=== PATIENT | female | born 2000 | race Caucasian/White ===

== ENCOUNTER 2021-07-13 10:08 | Outpatient (REF) | payer MEDICAID, OTHER, SELFPAY ==
[2021-07-13 10:41] LABS: Binax Internal Control QC Valid; Binax Now Covid-19 Ag Negative (Negative)
== END 2021-07-13 10:09 | disposition home or self-care (01) ==
LOC: HO.LAB 10:08
PROVIDERS: Visit Provider Internal Medicine
DX: Z20.822 Contact with and (suspected) exposure to COVID-19 (principal)
CPT/HCPCS: C9803

== ENCOUNTER 2021-07-15 13:52 | Emergency (ER) | payer MEDICAID, OTHER, SELFPAY ==
[2021-07-15 15:34] VITALS: BP 108/66; PULSE 110; RESP 18; TEMP 37.2; O2SAT 97; BMI 24.7
[2021-07-15 16:08] LABS: COVID-19 Test Positive (Negative)
--- NOTE | 2021-07-15 16:21 | ED_ITS ---
HPI - URI/Sore Throat General Chief Complaint: Upper Respiratory Symptoms <Cordelia Grant NP - Last Filed: 07/15/21 16:23> Stated Complaint: fever/body aches <Cordelia Grant NP - Last Filed: 07/15/21 16:23> Time Seen by Provider: 07/15/21 15:38 <Cordelia Grant NP - Last Filed: 07/15/21 16:23> Source: patient <Cordelia Grant NP - Last Filed: 07/15/21 16:23> Mode of arrival: ambulatory <Cordelia Grant NP - Last Filed: 07/15/21 16:23> Limitations: no limitations <Cordelia Grant NP - Last Filed: 07/15/21 16:23> History of Present Illness HPI Narrative: 21-year-old female here with reports of subjective fever, headache, sore throat since Friday evening. Patient received Moderna vaccine x2. No cough, difficulty breathing, chest pain, leg swelling or pain, vomiting, diarrhea, abdominal pain. <Cordelia Grant NP - Last Filed: 07/15/21 16:23> Related Data Allergies/Adverse Reactions: Allergies Allergy/AdvReac Type Severity Reaction Status Date / Time No Known Allergies Allergy Verified 07/15/21 15:38 [No Known Allergies*] <Cordelia Grant NP - Last Filed: 07/15/21 16:23> Review of Systems Review of Systems: Yes all other systems are reviewed and are negative <Cordelia Grant NP - Last Filed: 07/15/21 16:23> Constitutional: Constitutional: Reports no additional constitutional complaints, Denies body ache(s), Denies chills, Reports fever(s), Reports headache(s) and Denies weakness <Cordelia Grant NP - Last Filed: 07/15/21 16:23> Eyes: Eyes: Reports no additional eye complaints and Denies change in vision <KELSEY Hayes Last Filed: 07/15/21 16:23> ENT: Reports system reviewed and no additional complaints, except as documented, Denies dizziness, Reports headache(s), Denies nasal congestion, Denies nasal discharge, Denies neck pain and Reports sore throat <Cordelia Grant NP - Last Filed: 07/15/21 16:23> Cardiovascular: Cardiovascular: Reports no additional cardiovascular com plaints, Denies chest pain, Denies leg edema and Denies dyspnea <Cordelia Grant NP - Last Filed: 07/15/21 16:23> Respiratory: Respiratory: Reports no additional respiratory complaints, Denies cough and Denies dyspnea <Cordelia Grant NP - Last Filed: 07/15/21 16:23> Gastrointestinal: Gastrointestinal: Reports no additional gastrointestinal complaints, Denies abdominal pain, Denies diarrhea, Denies nausea and Denies vomiting <Cordelia Grant NP - Last Filed: 07/15/21 16:23> Genitourinary: Genitourinary: Reports no additional female genitourinary co mplaints and Denies urinary incontinence <Cordelia Grant NP - Last Filed: 07/15/21 16:23> Musculoskeletal: Musculoskeletal: Reports no additional musculoskeletal complaints, Denies back pain, Denies arthralgias, Denies joint swelling, Denies neck pain, Denies numbness and Denies tingling <Cordelia Grant NP - Last Filed: 07/15/21 16:23> Integumentary/Breasts: Skin/Breast: Reports system reviewed and no additional complaints, except as docu and Denies rash <Cordelia Grant NP - Last Filed: 07/15/21 16:23> Neurologic: Reports system reviewed and no additional complaints, except as documented, Denies Abnormal speech present, Denies dizziness, Reports headache(s), Denies numbness, Denies tingling and Denies weakness <Cordelia Grant NP - Last Filed: 07/15/21 16:23> [facility]LY [facility] Past Medical History Attestation statement: The following information was validated with the patient. <Cordelia Grant NP - Last Filed: 07/15/21 16:23> Source: old records reviewed and nursing notes reviewed <Cordelia Grant NP - Last Filed: 07/15/21 16:23> Medical History: Medical History No known health problems <Cordelia Grant NP - Last Filed: 07/15/21 16:23> Social History Social History: Social History Advance Directives: No Advance Directives Information Provided: Yes Patient : No <Cordelia Grant NP - Last Filed: 07/15/21 16:23> Physical Exam Vital Signs: Vital Signs: Last Vital Signs Temp 99.0 F 07/15/21 15:34 Pulse 110 H 07/15/21 15:34 Resp 18 07/15/21 15:34 BP 108/66 07/15/21 15:34 Pulse Ox 97 07/15/21 15:34 BMI result Body Mass Index 24.7 <Cordelia Grant NP - Last Filed: 07/15/21 16:23> Vital Signs: Last Vital Signs Temp 99.0 F 07/15/21 15:34 Pulse 110 H 07/15/21 15:34 Resp 18 07/15/21 15:34 BP 108/66 07/15/21 15:34 Pulse Ox 97 07/15/21 15:34 BMI result Body Mass Index 24.7 <Chino Gutierrez MD - Last Filed: 07/15/21 16:33> Const: General: cooperative, healthy appearing, comfortable and no acute distress <Cordelia Grant NP - Last Filed: 07/15/21 16:23> Orientation/consciousness: patient oriented x3 <Cordelia Grant NP - Last Filed: 07/15/21 16:23> Limitations: no limitations <Cordelia Grant NP - Last Filed: 07/15/21 16:23> HENMT: Head: Yes normal to inspection <Cordelia Grant NP - Last Filed: 07/15/21 16:23> Ears: hearing grossly normal bilaterally and TM's normal bilaterally <Cordelia Grant NP - Last Filed: 07/15/21 16:23> General nose exam: Normal external nose present <Cordelia Grant NP - Last Filed: 07/15/21 16:23> Face and sinus: Yes normal facial exam <Cordelia Grant NP - Last Filed: 07/15/21 16:23> Mouth: Normal oral and palatal mucosa present <Cordelia Grant NP - Last Filed: 07/15/21 16:23> Throat: Yes posterior oropharynx normal, Yes tonsils normal and Yes uvula midline <Cordelia Grant NP - Last Filed: 07/15/21 16:23> Eyes: General: appearance normal, both eyes and all related structures <Cordelia Grant NP - Last Filed: 07/15/21 16:23> Pupils: Equal, round and reactive pupils present <Cordelia Grant NP - Last Filed: 07/15/21 16:23> Neck: Neck: Yes normal visual inspection, Yes full ROM, Yes no lymphadenopathy and Yes no meningeal signs <Cordelia Grant NP - Last Filed: 07/15/21 16:23> Chest: Chest palpation & inspection: normal inspection of the chest <Cordelia Grant NP - Last Filed: 07/15/21 16:23> Resp: Effort & Inspection: normal respiratory effort <Cordelia Grant NP - Last Filed: 07/15/21 16:23> Auscultation: clear to auscultation bilaterally <Cordelia Grant NP - Last Filed: 07/15/21 16:23> Cardio: Rate: regular rate <Cordelia Grant NP - Last Filed: 07/15/21 16:23> Rhythm: regular rhythm <Cordelia Grant NP - Last Filed: 07/15/21 16:23> Peripheral pulses: Peripheral pulses 2+ throughout <Cordelia Grant NP - Last Filed: 07/15/21 16:23> GI: Inspection: Yes normal to inspection <Cordelia Grant NP - Last F iled: 07/15/21 16:23> Palpation (GI): Soft to palpation and nontender <Cordelia Grant NP - Last Filed: 07/15/21 16:23> Auscultation: normal bowel sounds <Cordelia Grant NP - Last Filed: 07/15/21 16:23> Back/Spine/Pelvis: Thoracic/Lumbar Spine: thoracic and lumbar spine normal to inspection <Cordelia Grant NP - Last Filed: 07/15/21 16:23> Skin: General skin exam: no rashes or lesions noted <Cordelia Grant NP - Last Filed: 07/15/21 16:23> Neuro: General: patient oriented x3, no meningeal signs, no focal motor deficits and normal sensation to monofilament <Cordelia Grant NP - Last Filed: 07/15/21 16:23> Cranial nerves: Yes Equal, round and reactive pupils present <Cordelia Grant NP - Last Filed: 07/15/21 16:23> Cognition (Neuro): normal cognition <Cordelia Grant NP - Last Filed: 07/15/21 16:23> Speech: No Abnormal speech present <Cordelia Grant NP - Last Filed: 07/15 16:23> Gait exam (Neuro): Normal gait present <Cordelia Grant NP - Last Filed: 07/15/21 16:23> Motor exam (neuro): 5/5 motor strength present throughout <Cordelia Grant NP - Last Filed: 07/15/21 16:23> Extrem: General: Yes normal to inspection <Cordelia Grant NP - Last Filed: 07/15/21 16:23> Course Course Course Narrative: [age] year old female here with reports of headache, subjective fevers and sore throat since Friday. Patient to call a test for COVID on Friday but results are still pending. On arrival patient is well appearing. Afebrile. Exam is benign. Will send rapid COVID test. 1615-rapid COVID test positive. No hypoxia or tachypnea. Lungs are clear. Re viewed quarantine for home. Reviewed worrisome signs symptoms when to return to the emergency department. Comfortable discharge home. <Cordelia Grant NP - Last Filed: 07/15/21 16:23> MDM - URI/Sore Throat Medical Records Attestation: I reviewed the patient's medical records. <Cordelia Grant NP - Last Filed: 07/15/21 16:23> Lab Data Attestation: I reviewed the patient's lab results. <Cordelia Grant NP - Last Filed: 07/15/21 16:23> Labs: Lab Results 07/15/21 Range/Units 15:56 COVID-19 ([facility]) Positive A (Negative) COVID-19 Clin Com See Note <Cordelia Grant NP - Last Filed: 07/15/21 16:23> Lab Results 07/15/21 Range/Units 15:56 COVID-19 ([facility]) Positive A (Negative) COVID-19 Clin Com See Note <Chino Gutierrez MD - Last Filed: 07/15/21 16:33> Discharge Plan Discharge Clinical Impression: COVID-19 <Cordelia Grant NP - Last Filed: 07/15/21 16:23> Patient Disposition: Home, Self-Care <Cordelia Grant NP - Last Filed: 07/15/21 16:23> Instructions: COVID-19 (Coronavirus Disease 2019) (ED) <Cordelia Grant NP - Last Filed: 07/15/21 16:23> Additional Instructions: Covid test is positive. You must quarantine for 5 days from onset of symptoms. After this you may return to work if you are fever free without tylenol and symptoms are improving. If you continue to have symptoms or fever you must continue to quarantine. Motrin or tylenol for pain or fever as needed Increase fluids, rest Return for shortness of breath, chest pain to ER <Cordelia Grant NP - Last Filed: 07/15/21 16:23> Referrals: Physician,Unknown J [Primary Care Provider] - 2 days <Cordelia Grant NP - Last Filed: 07/15/21 16:23> Stand Alone Forms: Work/School Release <Cordelia Grant NP - Last Filed: 07/15/21 16:23> Interventions: ED Discharge Assessment Last Done: 07/15/21 16:28 <Cordelia Grant NP - Last Filed: 07/15/21 16:23> Discharge Date/Time: 07/15/21 16:29 <Cordelia Grant NP - Last Filed: 07/15/21 16:23> Print Language: Greek <Cordelia Grant NP - Last Filed: 07/15/21 16:23>
== END 2021-07-15 16:29 | disposition home or self-care (01) ==
PROVIDERS: Nurse Practitioner Family; Emergency Provider Emergency Medicine
DX: U07.1 COVID-19 (principal); R50.9 Fever, unspecified; M79.10 Myalgia, unspecified site; R51.9 Headache, unspecified
CPT/HCPCS: 87635; 99283

== ENCOUNTER 2021-07-20 11:30 | Outpatient (REF) | payer MEDICAID, OTHER, SELFPAY ==
[2021-07-20 11:45] LABS: Binax Internal Control QC Valid; Binax Now Covid-19 Ag Negative (Negative)
== END 2021-07-20 11:31 | disposition home or self-care (01) ==
LOC: HO.LAB 11:30
PROVIDERS: Visit Provider Internal Medicine
DX: Z13.89 Encounter for screening for other disorder (principal)

== ENCOUNTER 2022-04-25 16:29 | Emergency (ER) | payer MEDICAID, OTHER, SELFPAY ==
[2022-04-25 16:43] VITALS: BP 131/68; PULSE 83; RESP 18; TEMP 36.6; O2SAT 100; BMI 25.7
[2022-04-25 17:08] LABS: Strep A Nucleic Acid Negative (Negative)
[2022-04-25 17:36] LABS: Influenza A PCR NEGATIVE (Negative); Influenza B PCR NEGATIVE (Negative); Resp Syncy Virus RNA Qual PCR NEGATIVE (Negative); SARS COV2 PCR INHOUSE NEGATIVE (Negative)
== END 2022-04-25 18:30 | disposition left against medical advice (07) ==
PROVIDERS: Emergency Provider Emergency Medicine
DX: J02.9 Acute pharyngitis, unspecified (principal); Z20.822 Contact with and (suspected) exposure to COVID-19
CPT/HCPCS: 0241U; 36415; 87651; 99282; 99283

== ENCOUNTER 2023-02-13 13:01 | Emergency (ER) | payer MEDICAID, OTHER, SELFPAY ==
--- NOTE | ~2023-02-13 | XR_ITS ---
EXAMINATION: XR CHEST CLINICAL INFORMATION: Shortness of breath. COMPARISON: None available. TECHNIQUE: 2 views of the chest were obtained. FINDINGS: No significant abnormality is noted involving the heart, lungs, mediastinum, bony thorax or soft tissues. XR/XR chest 2V IMPRESSION: No acute cardiopulmonary process.
[2023-02-13 13:17] VITALS: BP 123/86; PULSE 100; RESP 19; TEMP 36.6; O2SAT 100; BMI 21.3
--- NOTE | 2023-02-13 13:18 | ED.GENADULT ---
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 She also complains of a dry cough She reports her symptoms started 4 days ago ?when I smelled something at work in the bathroom. ? Denies any known sick contacts She also has some congestion Denies fevers or chills Related Data Allergies Allergy/AdvReac Type Severity Reaction Status Date / Time No Known Allergies Allergy Verified 02/13/23 13:12 [No Known Allergies*] Review of Systems Constitutional: Constitutional: Denies chills, Denies fever(s), Reports headache(s) and Reports malaise ENT: Reports headache(s) and Reports sore throat Cardiovascular: Cardiovascular: Denies chest pain and Denies dyspnea Respiratory: Respiratory: Reports cough and Denies dyspnea Gastrointestinal: Gastrointestinal: Denies abdominal pain, Denies nausea and Denies vomiting Musculoskeletal: Musculoskeletal: Denies back pain Integumentary/Breasts: Skin/Breast: Denies rash Neurologic: Reports headache(s) PMFSH Past Medical History Medical History No known health problems Physical Exam ED Vital Signs: Vital Signs - 24 hr 02/13/23 13:17 Temperature 98 F Pulse Rate 100 Respiratory Rate 19 Blood Pressure 123/86 Pulse Oximetry 100 Oxygen Delivery Method Room Air BMI result Body Mass Index 21.3 Const General: healthy appearing, comfortable, no acute distress, alert and awake Nutritional Appearance: well nourished Orientation/consciousness: patient oriented x3 HENMT Head: Yes normocephalic and Yes atraumatic Throat: Yes posterior oropharynx normal Neck Neck: Yes full ROM Resp Effort & Inspection: normal respiratory effort, able to speak in complete sentences, no audible wheezes and not labored Auscultation: clear to auscultation bilaterally Skin General skin exam: no rashes or lesions noted and elasticity normal Neuro General: patient oriented x3 Cranial nerves: Yes Bilaterally intact EOM present Cognition (Neuro): normal cognition Extrem Other: Moving all extremities well without any obvious deformities Course Course Course Narrative: RME- 22 year old female presents for evaluation of headache, sore throat shortness of breath since Friday, 4 days ago. She reports it started after smelling something at work. Plan for COVID swab, strep test, chest x-ray Medical Decision Making Medical Decision Making [facility] Narrative: Patient has symptoms of mild COVID, of COVID swab was positive. Chest x-ray is clear. Discussed with patient, she will be treated with symptomatic care. She does not qualify for Paxlovid treatment. Differential Diagnosis Differential Diagnoses: The differential diagnosis associated with the presentation includes COVID-19 Viral syndrome Upper respiratory infection Strep throat Pharyngitis Seasonal allergies Lab Data Labs: Lab Results 02/13/23 02/13/23 Range/Units 13:25 13:25 COVID-19 ([facility]) Positive A (Negative) COVID-19 Clin Com See Note S. pyogenes GrpA YESENIA Negative (Negative) Independent Interpretation I performed an independent interpretation of an: Plain X-Ray Interpretation: No acute infiltrates Radiology Impression Discussion of test interpretation with radiology: I have reviewed the radiologist's reading. Radiologist Impression: No acute cardiopulmonary pathology Discharge Plan Discharge Clinical Impression: COVID-19 Patient Disposition: Home, Self-Care Instructions: COVID-19 (Coronavirus Disease 2019) (ED) Additional Instructions: You tested positive for COVID-19 Use ibuprofen/Tylenol for fevers, body aches You need to self isolate for the next 5 days Return for new or worsening symptoms, especially if you are having shortness of breath or difficulty breathing Stand Alone Forms: Work/School Release
[2023-02-13 14:08] LABS: COVID-19 Test Positive (Negative); IDNOW Serial# 08D9AD1C; IDNOW Serial# BCCEAD1C; Strep A Nucleic Acid Negative (Negative)
== END 2023-02-13 15:08 | disposition home or self-care (01) ==
PROVIDERS: Physician Assistant; Emergency Provider Emergency Medicine
DX: U07.1 COVID-19 (principal); R06.02 Shortness of breath
CPT/HCPCS: 71046; 87635; 87651; 99282; 99283

== ENCOUNTER 2024-02-04 12:56 | Outpatient (AMB) | payer OTHER, SELFPAY ==
[2024-02-04 13:00] VITALS: BP 102/70; PULSE 73; O2SAT 100; BMI 27.1
--- NOTE | 2024-02-04 13:00 | MHC.PC.OV ---
Vital Signs 02/04/24 13:00 Height 5 ft 3 in Weight 153 lb BMI 27.1 BP 102/70 Blood Pressure Location Lt brachial Position Sitting Pulse 73 Pulse Source Pulse Oximeter Pulse Oximetry (%) 100 Oxygen Delivery Method Room Air Intake Visit Reasons: LOGISTICS COORDINATOR Assistant Activities Director Required: Yes Assistant Activities Director Language: American Allergies No Known Allergies [No Known Allergies*] Allergy (Verified 02/04/24 13:12) Medication List - Last Reconciled 02/04/24 by Gertrude Pryor PA-C No Known Home Meds Tobacco use date assessed: 02/04/24 Dental Screening Dental Screen Date: 02/04/24 Did you have a dental visit in the last 12 months?: No Did you have a dental problem in the last 6 months where you did not have access to dental care?: No Was dental information given to patient?: Yes HPI LOGISTICS COORDINATOR HPI Details 23-year-old female with no documented past medical history coming in to the office for the 1st time. She is known to [place]. Patient is primarily American-speaking and an spanish interpreter was used duration this visit. This is her 1st time being seen as an adult. She does not have a science job titles and has not had a routine Pap smear yet. She is unsure of the status of her vaccines and will work on getting those records. She has no acute concerns today. [facility] Medical History No known health problems Social History (Updated 02/04/24 @ 13:15 by Gertrude Pryor PA-C) Housing: House Alcohol intake: current Alcohol intake frequency: does not drink Patient Tobacco Use Status: Never used Tobacco service: No Current occupational status: employed Cognitive needs: No Hearing needs: No Vision needs: No Questionnaire PHQ-9 Over the last 2 weeks, how often have you been bothered by any of the following problems? 1. Little interest or pleasure in doing things: not at all 2. Feeling down, depressed, or hopeless: not at all 3. Trouble falling or staying asleep, or sleeping too much: not at all 4. Feeling tired or having little energy: several days 5. Poor appetite or overeating: not at all 6. Feeling bad about yourself - or that you are a failure or have let yourself or your family down: not at all 7. Trouble concentrating on things, such as reading the newspaper or watching television: not at all 8. Moving or speaking so slowly that other people could have noticed. Or the opposite - being so fidgety or restless that you have been moving around a lot more than usual: not at all 9. Thoughts that you would be better off or of hurting yourself in some way: not at all Total score: 1 73501 - PHQ-9 Billing: Yes Source: Developed by Drs. Roland Mcfarland, Yuly Romano, Art Terry and colleagues, with an educational juan from [employer]. Thrive Questionnaire Date Thrive assessed: 01/28/24 I am a: Patient What is your living situation today?: I have a steady place to live Within the past 12 months, did the food you bought not last and you didn't have the money to get more?: Never true Within the past 12 months, did you worry whether your food would run out before you got money to buy more?: Never true Do you have trouble paying for medicines?: No Do you have trouble getting transportation to medical appointments?: No Do you have trouble paying your heating and electricity bill?: No Do you have trouble taking care of your child, family member or friend?: No Do you have trouble with day-to-day activities such as bathing, preparing meals, shopping, managing finances, etc.?: No Are you currently unemployed and looking for a job?: No Are you interested in more education?: Yes Please select the resources that you would like help with: None Currently or been in a relationship where the following occur: No concerns reported THRIVE Score: 0 AUDIT C Alcohol Use Questionnaire (AUDIT-C) 1. How often do you have a drink containing alcohol?: Never 3. How often do you have six or more drinks on one occasion?: Never Total Score: 0 JOCELIN-7 AMB Questionnaire JOCELIN-7 Date JOCELIN - 7 assessed: 02/04/24 Feeling nervous, anxious, or on edge: 0 = Not at all Not being able to stop or control worryin = Not at all Worrying too much about different things: 0 = Not at all Trouble relaxin = Not at all Being so restless that it is hard to sit still: 0 = Not at all Becoming easily annoyed or irritable: 0 = Not at all Feeling afraid as if something awful might happen: 0 = Not at all Total JOCELIN-7 score (0-4 normal; 5-9 mild; 10-14 moderate; 15-21 severe): 0 Source: Developed by Drs. Roland Mcfarland, Yuly Romano, Art Terry and colleagues, with an educational juan from [employer] [place]. JOCELIN-7 Assessment Billing JOCELIN-7 Assessment Tool: JOCELIN-7 Assessment 14759 Review of Systems Const Denies body aches, Denies fatigue, Denies fever(s), Denies frequent falls, Reports headache(s) (occasional ) and Denies weakness Eyes Reports no additional complaints and Denies change in vision ENT Denies dysphagia, Denies dizziness, Denies facial pain, Reports headache(s) (occasional ), Denies nasal congestion and Denies odynophagia Card Details: can get palpitations when stressed Denies chest pain, Denies syncope, Denies irregular heart rhythm, Denies leg edema, Denies lightheadedness and Denies dyspnea Resp Denies cough and Denies dyspnea GI Reports abdominal pain (occasionally with food), Denies constipation, Denies dysphagia, Denies dyspepsia, Denies diarrhea, Reports nausea (with menses), Denies odynophagia and Denies vomiting Denies urinary frequency, Denies dysuria, Denies urinary hesitancy and Denies urinary urgency Musc Denies back pain and Denies myalgias Skin/Breast Reports system reviewed and no additional complaints, except as documented Neuro Denies dizziness, Denies syncope, Denies frequent falls, Reports headache(s) (occasional ) and Denies weakness Psych Reports no additional complaints Endo Denies fatigue Physical exam (Primary Care) Vital Signs: Oxygen Delivery Method Room Air 02/04/24 13:00 Thrive Assessment: Date of Thrive Assessment Date Thrive assessed 01/28/24 01/28/24 12:35 Currently or been in a relationship where the following occur: No concerns reported Const General: cooperative, healthy appearing, comfortable and no acute distress Orientation/consciousness: patient oriented x3 HENMT Head: Yes normocephalic Ears: hearing grossly normal bilaterally, external ears normal, TM's normal bilaterally and EAC's normal General nose exam: Normal external nose present Face and sinus: Yes normal facial exam and Yes sinuses nontender Mouth: Normal oral and palatal mucosa present and tongue normal Throat: Yes posterior oropharynx normal Eyes General: appearance normal, both eyes and all related structures Conjunctivae: conjunctivae normal Pupils: Equal, round and reactive pupils present EOM: EOMs intact bilaterally and No Nystagmus present Neck Neck: Yes normal visual inspection, Yes full ROM and Yes no lymphadenopathy Chest Chest palpation & inspection: normal inspection of the chest Resp Effort & Inspection: normal respiratory effort Auscultation: clear to auscultation bilaterally, no crackles, no rales, no rhonchi, no wheezes and breath sounds present Cardio Rate: regular rate Rhythm: regular rhythm Peripheral pulses: radial pulses present and dorsalis pedis present GI Inspection: Yes normal to inspection and No Abdominal wall edema Palpation (GI): Soft to palpation, not firm and nontender Auscultation: normal bowel sounds Rectal Exam - Female: deferred General: Yes no CVA tenderness Back/Spine/Pelvis Back: no CVA tenderness Skin General skin exam: no rashes or lesions noted Neuro General: patient oriented x3 Cranial nerves: Yes Equal, round and reactive pupils present, Yes Midline tongue present, Yes Ability to bilaterally elevate shoulders present and No Nystagmus present Gait exam (Neuro): Normal gait present Extrem General: Yes normal to inspection, Yes full ROM, No no pedal edema and No edema Psych Speech and movement: Normal speech and movement present Affect: normal affect Insight: Good insight present (Psych) Judgement: Good judgement present (Psych) Assessment and Plan Assessment & Plan (1) Annual physical exam: Code(s): Z00.00 - Encounter for general adult medical examination without abnormal findings Plan: Patient was referred to Gynecology for routine Pap smears. Otherwise she is up-to-date for all of routine screenings for her age. She will work on her vaccination records see if she is up-to-date on vaccines. Ordered for routine updated blood work. We will follow up in 1 year or sooner if new problems arise. Plan This note was constructed using voice recognition software. While every effort has been made to ensure accuracy and software tools engineer, still areas may have been included sometimes these areas may affect the content or meeting of the given symptoms. Total time spent caring for the patient today was 30 minutes. This includes time spent before the visit reviewing the chart, time spent during the visit, and time spent after the visit and documentation. Orders: Orders Comprehensive Met. Panel Today Z00.00 - Encounter for general adult medical examination without abnormal findings Free T4 (Free Thyroxine) Today Z00.00 - Encounter for general adult medical examination without abnormal findings Complete Blood Count Auto Diff Today Z00.00 - Encounter for general adult medical examination without abnormal findings TSH reflex Free T4 Today Z00.00 - Encounter for general adult medical examination without abnormal findings Vitamin B12 and Folate Today Z00.00 - Encounter for general adult medical examination without abnormal findings Vitamin D 25-OH (D2 and D3) Today Z00.00 - Encounter for general adult medical examination without abnormal findings Referrals TRANSFER OPERATOR Referral Z00.00 - Encounter for general adult medical examination without abnormal findings Coding Level of Care Code New Pt Prev Care 18-39yr(84225 Diagnoses Annual physical exam Z00.00 Additional Codes JOCELIN-7 Assessment Billing - JOCELIN-7 Assessment Tool: JOCELIN-7 Assessment 33194 ([id number])
== END 2024-02-04 13:32 | disposition home or self-care (01) ==
DX: Z00.00 Encounter for general adult medical examination without abnormal findings (principal)
CPT/HCPCS: 99385

== ENCOUNTER 2024-04-29 10:03 | Outpatient (AMB) | payer OTHER, SELFPAY ==
[2024-04-29 10:22] VITALS: BP 110/60; BMI 26.9
--- NOTE | 2024-04-29 10:22 | MHC.OFFVIS ---
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 She says she is not sexually active and only had sex once 6 years ago and she used condom then. If she had sex again in the future she would use a condom. She says her periods are regular and last 4-5 days. She lives in [place] with her parents there from the [place] from [place] . She said she graduated from high school and is considering going to college she works at [employer] and is here on her break. She is nervous about the exam. She says she does not have a primary care provider either when I asked her what read her make a manager architectural appointment for her Pap smear she said it was when she turned 24. [facility] Medical History No known health problems Social History Housing: House Alcohol intake: current Alcohol intake frequency: does not drink Patient Tobacco Use Status: Never used Tobacco service: No Current occupational status: employed Cognitive needs: No Hearing needs: No Vision needs: No Female Reproductive History Menstrual Duration of menses: 3-5 days Date of last menstrual period: 04/19/24 control method: none Total pregnancies: 0 History of abnormal pap smear: No (no previous pap) Physical Exam Vital Signs: Last Vital Signs BP 110/60 04/29/24 10:22 BMI result Body Mass Index 26.9 Const General: healthy appearing, comfortable, no acute distress, well developed and alert Nutritional Appearance: average body habitus Orientation/consciousness: patient oriented x3 Limitations: no limitations HEENT Head: Yes normocephalic Neck Neck: Yes normal visual inspection Chest Chest palpation & inspection: normal inspection of the chest Breast/axilla inspection: normal inspection of the breasts and normal inspection of the axillae Breast/axilla palpation: normal palpation of the breasts and normal palpation of the axillae Resp Effort & Inspection: normal respiratory effort GI Inspection: Yes normal to inspection, No Abdominal wall edema and No distended Palpation (GI): Soft to palpation and nontender Other: External exam vagina appeared normal at introitus with normal clear healthy appearing normal mucus at introitus attempted x2 to introduce thin Feliz speculum but patient clenched tightly as soon as speculum started to be advanced patient given choice of continuing were stopping and she chose to stop. We will have patient reschedule pelvic exam and testing for STIs and Pap smear. This was patient's 1st attempt she has had sex 1 time before 6 years she says she used condoms. External Female Exam: normal external appearance and normal appearance of the urethra Speculum Exam - Vagina: normal appearance of the vagina and normal vaginal discharge Neuro General: patient oriented x3 Assessment & Plan Assessment & Plan (1) Well woman exam (no gynecological exam): Comment: Patient attempted pelvic but clenched vagina tightly, attempt aborted will reschedule. Code(s): Z00.00 - Encounter for general adult medical examination without abnormal findings Category: Medical Plan -----Discussed in this visit the following: healthy balanced diet, regular and consistent exercise, getting recommended health screens, doing the best she can for her particular health concerns, kegel exercises, pap smear screening and followup recommendations, mammography screening and SBE, normal changes in cycles in her life stage--- . Teaching done before the exam was attempted about the 1st pelvic exam and what we will be testing for and the reasons and process of the exam reviewed relaxation about when it came time for the patient did clench very tightly repeatedly patient was given the opportunity of choosing to continue or postpone and reschedule the exam and she chose to start there and reschedule the exam I did let her know that glancing externally everything appeared within normal limits I did discuss the range of normal vaginal discharge in hers appeared normal I also reviewed that her external anatomy appeared normal reviewed how it is normal to clench when 1 is anxious but that it is the active clenching that makes it more uncomfortable than it needs to be and the exam itself should not hurt if she is relaxed. Reviewed that she is somewhat at low risk for infection but it would be good to check and have her 1st Pap smear and check for infections in case there was any contact outside of the condom. She will be looking for her primary care provider and she is also going to be looking into continue her Education possibly in the spring. Coding Level of Care Code New Pt Prev Care 18-39yr(48293 Diagnoses Well woman exam (no gynecological exam) Z00.00
== END 2024-04-29 11:01 | disposition home or self-care (01) ==
LOC: HO.HWSM 10:04
PROVIDERS: Visit Provider Advanced Practice Midwife
DX: Z01.419 Encounter for gynecological examination (general) (routine) without abnormal findings (principal)
CPT/HCPCS: 99385

== ENCOUNTER → 2024-04-29 10:03 | Outpatient (BNVA) | payer OTHER, SELFPAY | PROVIDERS: Visit Provider Advanced Practice Midwife ==